=== PATIENT | male | born 1965 | race Caucasian/White ===

== ENCOUNTER 2020-08-08 16:30 | Emergency (ER) | payer BC, MEDICAID ==
[~2020-08-08] VITALS: Ht 188 cm; Wt 81.7 kg
[2020-08-08 16:58] VITALS: BP 135/69
--- NOTE | 2020-08-08 17:00 | NUR ---
PT ARRIVED WITH COMPLAINTS OF BACK WOUNDS THAT ARE SCABED OVER AND ITCHY. PT REPORTS SLEEPING IN VAN WITH FRIEND WHO IS INCONTINENT AND THINKS IT MIGHT BE MAKING THE RASH WORSE. VSS. PROVIDED WARM BLANKET FOR COMFORT.
--- NOTE | 2020-08-08 17:06 | NUR ---
PT STATES HE DRINKS A PINT OF VODKA A DAY AND IS CURRENTLY INTOXICATED.
== END 2020-08-08 17:56 | disposition home or self-care (01) ==
LOC: ED 17:30
DX: L73.9 Follicular disorder, unspecified (principal); L88 Pyoderma gangrenosum; F17.210 Nicotine dependence, cigarettes, uncomplicated
CPT/HCPCS: 99406

== ENCOUNTER 2020-08-11 20:18 | Emergency (ER) | payer MEDICAID ==
[~2020-08-11] VITALS: Ht 188 cm; Wt 80.3 kg
[2020-08-11] MEDS ORDERED: IBUPROFEN 800 MG TABLET ONE (21:40)
--- NOTE | 2020-08-11 21:46 | NUR ---
PT REQUESTED MOTRIN FOR TOOTH PAIN. PROVIDER NOTIFIED
--- NOTE | 2020-08-11 21:46 | NUR ---
PT REQUESTING CASEY. PT PROVIDED CRACKERS MILK AND APPLE SAUCE AND WATER
--- NOTE | 2020-08-11 21:47 | NUR ---
PT STATED"I HAVE THE BEST INSURANCE CAN I GET ONE NIGHT HERE AT THIS HOTEL, [facility]"
[2020-08-11 21:48] VITALS: BP 132/78
[2020-08-11] MEDS ORDERED: IBUPROFEN 800 MG TABLET PO ONE (22:00)
== END 2020-08-11 21:50 | disposition home or self-care (01) ==
LOC: ED 21:44
DX: L73.8 Other specified follicular disorders (principal); Z72.9 Problem related to lifestyle, unspecified; R94.31 Abnormal electrocardiogram [ECG] [EKG]; Z76.0 Encounter for issue of repeat prescription; Z90.49 Acquired absence of other specified parts of digestive tract
CPT/HCPCS: 93005; 99283

== ENCOUNTER 2020-10-07 12:15 | Emergency (ER) | payer MEDICAID ==
[~2020-10-07] VITALS: Ht 185.4 cm; Wt 78.7 kg
--- NOTE | 2020-10-07 12:24 | NUR ---
EKG done in triage.
[2020-10-07 12:48] LABS: BASOPHILS % (AUTO) 1 % (0-1); EOSINOPHILS % (AUTO) 1 % (1-7); LYMPHOCYTES % (AUTO) 18 % (22-44); MEAN CORPUSCULAR HEMOGLOBIN 32.9 pg (27.5-34.5); MEAN CORPUSCULAR HGB CONC 33.9 g/dL (33.2-36.2); MEAN PLATELET VOLUME 8.5 fL (7.4-10.4); MONOCYTES % (AUTO) 11 % (2-9); NEUTROPHILS % (AUTO) 69 % (42-75); PLATELET COUNT 231 x10^3/uL (130-400); RED CELL DISTRIBUTION WIDTH 13.6 % (9.4-14.8)
[2020-10-07 12:57] LABS: MD NO
[2020-10-07 13:00] LABS: ALANINE AMINOTRANSFERASE 40 U/L (12-78); ALBUMIN 3.6 g/dL (3.4-5.0); ANION GAP 9 mmol/L (5-15); CALCIUM 8.7 mg/dL (8.5-10.1); CHLORIDE 106 mmol/L (98-107); CREATININE 0.67 mg/dL (0.7-1.3)
[2020-10-07 13:04] LABS: ALKALINE PHOSPHATASE 111 U/L (45-117); TOTAL PROTEIN 7.7 g/dL (6.4-8.2); TROPONIN I < 0.015 ng/mL (0.000-0.045)
[2020-10-07] MEDS ORDERED: KETOROLAC 30 MG/1 ML ONE (13:12)
[2020-10-07] MEDS ORDERED: ASPIRIN 81 MG TABLET CHEW ONE (13:12)
[2020-10-07] MEDS ORDERED: ASPIRIN 81 MG TABLET CHEW PO ONE (13:30)
[2020-10-07] MEDS ORDERED: KETOROLAC 30 MG/1 ML IVPush ONE (13:30)
[2020-10-07 15:30] VITALS: BP 167/99
[2020-10-07 16:14] LABS: TROPONIN I < 0.015 ng/mL (0.000-0.045)
== END 2020-10-07 17:00 | disposition home or self-care (01) ==
LOC: ED 16:31
DX: R07.2 Precordial pain (principal); R07.89 Other chest pain; R11.0 Nausea; F17.200 Nicotine dependence, unspecified, uncomplicated
CPT/HCPCS: 36415; 71045; 80053; 84484; 85025; 93005; 99285